=== PATIENT | male | born 2000 | race Caucasian/White ===

== ENCOUNTER 2019-12-07 09:44 | Emergency (ER) | payer MEDICAID ==
[2019-12-07] MEDS ORDERED: LORazepam 0.5 MG TABLET PO STA (10:02)
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
[2019-12-07 10:40] LABS: BASOPHILS % (AUTO) 0.5 %; EOSINOPHILS # (AUTO) 0.2 10^3/uL (0.0-0.7); EOSINOPHILS % (AUTO) 2.2 %; HGB - HEMOGLOBIN 16.5 g/dL (14.0-18.0); LYMPHOCYTES # (AUTO) 2.2 10^3/uL (1.5-3.5); MEAN CORPUSCULAR HEMOGLOBIN 30.4 pg (27.0-31.0); MEAN CORPUSCULAR HGB CONC 34.5 g/dL (32.0-36.0); MEAN CORPUSCULAR VOLUME 88.2 fL (80.0-94.0); MEAN PLATELET VOLUME 9.7 fL (7.4-11.4); MONOCYTES # (AUTO) 0.7 10^3/uL (0.0-1.0); MONOCYTES % (AUTO) 9.2 %; NEUTROPHILS # (AUTO) 4.2 10^3/uL (1.5-6.6); NEUTROPHILS % (AUTO) 57.8 %; PLT - PLATELET COUNT 321 10^3/uL (130-450); RED BLOOD COUNT 5.42 10^6/uL (4.70-6.10); RED CELL DISTRIBUTION WIDTH 13.8 % (12.0-15.0); WHITE BLOOD COUNT 7.3 x10^3/uL (4.8-10.8)
[2019-12-07 10:41] LABS: MUDS CUTOFF CONCENTRATIONS CUTOFF CONC BELOW:
[2019-12-07 10:45] LABS: BILIRUBIN,URINE NEGATIVE (NEGATIVE); GLUCOSE, URINE (UA) NEGATIVE (NEGATIVE); KETONES,URINE (UA) NEGATIVE (NEGATIVE); LEUKOCYTE ESTERASE, URINE NEGATIVE (NEGATIVE); NITRITE,URINE NEGATIVE (NEGATIVE); OCCULT BLOOD,URINE NEGATIVE (NEGATIVE); PH,URINE 8.5 PH (5.0-7.5); PROTEIN,URINE NEGATIVE (NEGATIVE); UROBILINOGEN,URINE 0.2 (NORMAL) E.U./dL (NORMAL)
[2019-12-07 10:46] LABS: CLARITY,URINE CLEAR (CLEAR)
[2019-12-07 10:54] LABS: AMPHETAMINE SCREEN,URINE NEGATIVE (NEGATIVE); BENZODIAZEPINES SCREEN, URINE NEGATIVE (NEGATIVE); COCAINE SCREEN URINE NEGATIVE (NEGATIVE); METHADONE SCREEN, URINE NEGATIVE (NEGATIVE); METHAMPHETAMINES SCREEN, URINE NEGATIVE (NEGATIVE); OPIATE SCREEN, URINE NEGATIVE (NEGATIVE); OXYCODONE SCREEN, URINE NEGATIVE (NEGATIVE); TRICYCLIC ANTIDEPRESSANT,URINE NEGATIVE (NEGATIVE)
[2019-12-07 10:55] LABS: PROPOXYPHENE SCREEN, URINE NEGATIVE (NEGATIVE)
[2019-12-07 10:58] LABS: ACETAMINOPHEN < 10 ug/mL (10-30); ALBUMIN/GLOBULIN RATIO 1.6 (1.0-2.2); ALKALINE PHOSPHATASE 48 IU/L (42-121); ALT ALANINE AMINOTRANSFERASE 23 IU/L (10-60); AST ASPARTATE AMINOTRANSFERASE 20 IU/L (10-42); BILIRUBIN,TOTAL 0.6 mg/dL (0.2-1.0); BUN - BLOOD UREA NITROGEN 13 mg/dL (6-20); CALCIUM 9.9 mg/dL (8.5-10.3); CARBON DIOXIDE - CO2 29 mmol/L (21-32); CHLORIDE 102 mmol/L (101-111); CREATININE 0.9 mg/dL (0.6-1.2); GLUCOSE 88 mg/dL (70-100); LIPASE 31 U/L (22-51); SALICYLATE < 6.0 mg/dL; SODIUM 140 mmol/L (135-145); TOTAL PROTEIN 8.1 g/dL (6.7-8.2)
[2019-12-07 12:37] VITALS: BP 130/75
== END 2019-12-07 12:52 | disposition home or self-care (01) ==
LOC: ED 09:44
DX: F41.9 Anxiety disorder, unspecified (principal); Z20.828 Contact with and (suspected) exposure to other viral communicable diseases
CPT/HCPCS: 36415; 80053; 80306; 80307; 80320; 80329; 81003; 83690; 84443; 85025; 87635; 99283; A9270; 81001; 87086

== ENCOUNTER 2020-01-20 15:31 | Emergency (ER) | payer MEDICAID ==
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
[2020-01-20 16:10] LABS: MUDS CUTOFF CONCENTRATIONS CUTOFF CONC BELOW:
[2020-01-20 16:11] LABS: BASOPHILS # (AUTO) 0.1 10^3/uL (0.0-0.1); BASOPHILS % (AUTO) 0.6 %; EOSINOPHILS # (AUTO) 0.1 10^3/uL (0.0-0.7); EOSINOPHILS % (AUTO) 1.1 %; HGB - HEMOGLOBIN 15.4 g/dL (14.0-18.0); LYMPHOCYTES # (AUTO) 2.3 10^3/uL (1.5-3.5); LYMPHOCYTES % (AUTO) 18.5 %; MEAN CORPUSCULAR HEMOGLOBIN 30.6 pg (27.0-31.0); MEAN CORPUSCULAR HGB CONC 34.5 g/dL (32.0-36.0); MEAN CORPUSCULAR VOLUME 88.7 fL (80.0-94.0); MONOCYTES % (AUTO) 8.2 %; NEUTROPHILS # (AUTO) 8.8 10^3/uL (1.5-6.6); NEUTROPHILS % (AUTO) 71.2 %; PLT - PLATELET COUNT 318 10^3/uL (130-450); RED BLOOD COUNT 5.03 10^6/uL (4.70-6.10); RED CELL DISTRIBUTION WIDTH 13.7 % (12.0-15.0); WHITE BLOOD COUNT 12.4 x10^3/uL (4.8-10.8)
[2020-01-20 16:18] LABS: BILIRUBIN,URINE NEGATIVE (NEGATIVE); GLUCOSE, URINE (UA) NEGATIVE (NEGATIVE); KETONES,URINE (UA) 40 mg/dL (NEGATIVE); LEUKOCYTE ESTERASE, URINE NEGATIVE (NEGATIVE); NITRITE,URINE NEGATIVE (NEGATIVE); OCCULT BLOOD,URINE NEGATIVE (NEGATIVE); PROTEIN,URINE NEGATIVE (NEGATIVE); UROBILINOGEN,URINE 0.2 (NORMAL) E.U./dL (NORMAL)
[2020-01-20 16:22] LABS: CLARITY,URINE CLEAR (CLEAR)
[2020-01-20 16:27] LABS: ACETAMINOPHEN < 10 ug/mL (10-30); ALBUMIN 4.9 g/dL (3.2-5.5); ALBUMIN/GLOBULIN RATIO 1.6 (1.0-2.2); ALKALINE PHOSPHATASE 41 IU/L (42-121); ALT ALANINE AMINOTRANSFERASE 38 IU/L (10-60); AST ASPARTATE AMINOTRANSFERASE 28 IU/L (10-42); BILIRUBIN,TOTAL 0.6 mg/dL (0.2-1.0); BUN - BLOOD UREA NITROGEN 18 mg/dL (6-20); CALCIUM 9.4 mg/dL (8.5-10.3); CARBON DIOXIDE - CO2 26 mmol/L (21-32); CHLORIDE 97 mmol/L (101-111); CREATININE 0.8 mg/dL (0.6-1.2); GLUCOSE 110 mg/dL (70-100); LIPASE 28 U/L (22-51); SALICYLATE < 6.0 mg/dL; SODIUM 136 mmol/L (135-145)
[2020-01-20 16:34] LABS: AMPHETAMINE SCREEN,URINE NEGATIVE (NEGATIVE); BENZODIAZEPINES SCREEN, URINE NEGATIVE (NEGATIVE); COCAINE SCREEN URINE NEGATIVE (NEGATIVE); METHADONE SCREEN, URINE NEGATIVE (NEGATIVE); METHAMPHETAMINES SCREEN, URINE NEGATIVE (NEGATIVE); OPIATE SCREEN, URINE NEGATIVE (NEGATIVE); OXYCODONE SCREEN, URINE NEGATIVE (NEGATIVE); PROPOXYPHENE SCREEN, URINE NEGATIVE (NEGATIVE); TRICYCLIC ANTIDEPRESSANT,URINE NEGATIVE (NEGATIVE)
[2020-01-20 17:02] LABS: C. PNEUMONIAE- RESP PCR PANEL NOT DETECTED
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
[2020-01-20 18:54] VITALS: BP 144/86
[2020-01-20] MEDS ORDERED: OLANZapine ODT 5 MG TABLET TL SCH ×2 (19:00)
[2020-01-20] MEDS ORDERED: LORazepam 1 MG TABLET PO STA (19:14)
== END 2020-01-21 00:11 ==
LOC: ED 15:31
DX: F20.1 Disorganized schizophrenia (principal); R45.851 Suicidal ideations; F32.9 Major depressive disorder, single episode, unspecified; F41.9 Anxiety disorder, unspecified; F12.90 Cannabis use, unspecified, uncomplicated; Z20.828 Contact with and (suspected) exposure to other viral communicable diseases; F17.200 Nicotine dependence, unspecified, uncomplicated
CPT/HCPCS: 0202U; 36415; 80053; 80306; 80307; 80320; 80329; 81003; 83690; 84443; 85025; 99283; 99285; A9270; J8499; 81001; 87086

== ENCOUNTER 2020-02-02 14:28 | Outpatient (CLI) | payer MEDICAID ==
--- NOTE | 2020-02-02 16:19 | XRAY Report ---
PROCEDURE: Lumbar Spine 2 View INDICATIONS: LOW BACK PAIN TECHNIQUE: 2 views of the lumbar spine were acquired. COMPARISON: None. FINDINGS: Bones: Bilateral L5 pars defects with approximately 1.3 cm anterolisthesis of L5 on S1. Associated m oderate facet osteoarthropathy. The degree of listhesis along with the associated spondylitic change results in moderate narrowing of the L4-L5 and L5-S1 neural foramina. Soft tissues: Overlying bowel gas pattern is normal. No suspicious soft tissue calcifications. IMPRESSION: Bilateral L5 pars defects with approximately 1.3 cm spondylolisthesis of L5 on S1, and a ssociated overall moderate degenerative changes, including at least moderate bilateral neural foramin al narrowing at L4-L5 and L5-S1. Consider MRI if there are radicular symptoms. Reviewed by: Twan Jolly MD on 02/02/2020 3:18 PM [place] Approved by: Twan Jolly MD on 02/02/2020 3:18 PM [facility] Station ID: [id number]
== END 2020-02-02 23:59 | disposition home or self-care (01) ==
LOC: DI.S 14:28
PROVIDERS: ATTEND Nurse Practitioner
DX: M43.17 Spondylolisthesis, lumbosacral region (principal)

== ENCOUNTER 2020-05-09 06:48 | Emergency (ER) | payer MEDICAID ==
[2020-05-09 07:04] VITALS: BP 126/76
--- NOTE | 2020-05-09 08:28 | ED Physician Documentation ---
History of Present Illness - Stated complaint Stated Complaint: MHE - Chief complaint Chief Complaint: MHE - History obtained from History obtained from: Patient - History of Present Illness Timing: Today - Additonal information Additional information: 20-year-old male history of undifferentiated schizophrenia has been living at his mother's home with his mother and his grandmother and he has been kicked out of their home he has been at [facility] for some time and he has been kicked out of [facility] as well. He offers no reason for this. He spent the night in a gas station and did not sleep and he states that this time around he has been homeless for 2 days. He states that basically since he has been 16 he has been homeless in some form or another. The patient denies suicidal or homicidal ideation and he is currently denying auditory or visual hallucinations. He does state that he has previously used amphetamine and methamphetamine he has never used heroin. He states that he has drank in the past but is not a regular drinker and he is not intoxicated this morning. He has come to the emergency department this morning seeking resources for homelessness. Review of Systems Constitutional: denies: Fever, Chills Eyes: denies: Decreased vision Ears: reports: Ear pain Nose: denies: Rhinorrhea / runny nose, Congestion Throat: denies: Sore throat Cardiac: denies: Chest pain / pressure, Palpitations Respiratory: reports: Cough. denies: Dyspnea GI: denies: Abdominal Pain, Nausea, Vomiting : denies: Dysuria, Frequency Skin: denies: Rash Musculoskeletal: denies: Neck pain, Back pain, Extremity pain Neurologic: denies: Generalized weakness, Focal weakness, Numbness Psychiatric: reports: Depressed, Anxiety, Insomnia PD PAST MEDICAL HISTORY - Past Medical History Past Medical History: Yes Psych: Depression, Anxiety - Past Surgical History Past Surgical History: No - Present Medications Home Medications: Ambulatory Orders Medication Instructions Recorded Confirmed No Known Home Medications 05/09/20 05/09/20 - Allergies Allergies/Adverse Reactions: Allergies Allergy/AdvReac Type Severity Reaction Status Date / Time No Known Drug Allergies Allergy Verified 05/09/20 07:04 - Social History Does the pt smoke?: Yes Smoking Status: Current every day smoker Does the pt drink ETOH?: No Does the pt have substance abuse?: No - Immunizations Immunizations are current?: No - POLST Patient has POLST: No PD ED PE NORMAL - Vitals Vital signs reviewed: Yes (normal ) - General General: Alert and oriented X 3, No acute distress, Well developed/nourished - HEENT HEENT: Atraumatic, PERRL, EOMI, Pharynx benign, Dentition benign, Other (There is erythema along the umbo with rounding of the umbo bilaterally and worse on the right) - Neck Neck: Supple, no meningeal sign, No bony TTP - Cardiac Cardiac: RRR, No murmur - Respiratory Respiratory: No respiratory distress, Clear bilaterally - Abdomen Abdomen: Soft, Non tender, Non distended, No organomegaly - Back Back: No CVA TTP, No spinal TTP - Derm Derm: Normal color, Warm and dry, No rash - Extremities Extremities: No deformity, No edema - Neuro Neuro: Alert and oriented X 3, medical administrative specialist 2-12 intact, No motor deficit, No sensory deficit, Normal speech Eye Opening: Spontaneous Motor: Obeys Commands Verbal: Oriented GCS Score: 15 - Psych Psych: Normal affect, Other (mood is withdrawn) Results - Vitals Vitals: Vital Signs - 24 hr 05/09/20 06:58 Temperature 36.9 C Heart Rate 79 Respiratory 18 Rate Blood Pressure 126/76 O2 Saturation 98 Oxygen O2 Source Room air PD MEDICAL DECISION MAKING - ED course Complexity details: reviewed old records, reviewed results, re-evaluated patient, considered differential, d/w patient ED course: 20-year-old homeless male has come to the emergency department this morning seeking resources. He is not suicidal or homicidal and denies auditory or visual hallucinations. He is asking for resources. The social sciences lecturer begins to give resources and the patient eloped from the emergency department. He headed to the [facility]. He was asking for money for a court date in 3 weeks and he was not forthcoming on why he was going to court. He could not explain why he was kicked out of his home. He was kicked out of Juan's house for breaking into someone's room to use their cell phone. Departure - Departure Disposition: ED [place] Clinical Impression: Homelessness
== END 2020-05-09 11:22 | disposition left against medical advice (07) ==
LOC: ED 06:48
DX: F20.3 Undifferentiated schizophrenia (principal); Z59.0 Homelessness; F17.200 Nicotine dependence, unspecified, uncomplicated
CPT/HCPCS: 99282; 99283

== ENCOUNTER 2020-05-14 22:36 | Outpatient (CLI) | payer MEDICAID | END 2020-05-14 22:37 | disposition critical access hospital (66) | LOC: EMS 22:36 | PROVIDERS: ATTEND Emergency Medicine | DX: Z60.5 Target of (perceived) adverse discrimination and persecution (principal) | CPT/HCPCS: A0425; A0429 ==

== ENCOUNTER 2020-05-14 22:50 | Emergency (ER) | payer MEDICAID ==
--- NOTE | 2020-05-14 22:55 | ED Physician Documentation ---
PD HPI MHE - Stated complaint Stated Complaint: MHE - History obtained from History obtained from: Patient, EMS - History of Present Illness Primary symptom: Other (paranoia) Timing - onset: Today Recently seen: Emergency Dept (T+R 5 days ago from this ED when he was requesting resources for homelessness) - Additional information Additional information: YOUNG. Patient says he called 911 because he was "not feeling particularly safe". Patient says he feels people around him are in gangs seeking to hurt him. He says he feels people in gangs are looking to retaliate but he will not elaborate what he means by this. He says he identifies the people as gang members because they are wearing red. He does not perceive this as delusion; he says there are actually people around him ([employer]) and that they are gang members. He says he is not currently taking prescription medication; when I ask if he is supposed to be taking medication, he gives vague/unclear answers. He is evasive with most of my HPI. Review of Systems Cardiac: reports: Reviewed and negative Respiratory: reports: Reviewed and negative GI: reports: Reviewed and negative Psychiatric: denies: Depressed, Suicidal, Insomnia PD PAST MEDICAL HISTORY - Past Medical History Past Medical History: Yes Psych: Depression, Anxiety - Past Surgical History Past Surgical History: No - Present Medications Home Medications: Ambulatory Orders Medication Instructions Recorded Confirmed No Known Home Medications 05/09/20 05/15/20 - Allergies Allergies/Adverse Reactions: Allergies Allergy/AdvReac Type Severity Reaction Status Date / Time No Known Drug Allergies Allergy Verified 05/14/20 23:04 - Social History Does the pt smoke?: Yes Smoking Status: Current every day smoker Does the pt drink ETOH?: No Does the pt have substance abuse?: No - Immunizations Immunizations are current?: No - POLST Patient has POLST: No PD ED PE NORMAL - Vitals Vital signs reviewed: Yes - General General: Alert and oriented X 3, No acute distress, Well developed/nourished - HEENT HEENT: PERRL, EOMI - Neck Neck: Supple, no meningeal sign - Cardiac Cardiac: RRR, No murmur - Respiratory Respiratory: No respiratory distress, Clear bilaterally - Abdomen Abdomen: Soft, Non tender Results - Vitals Vitals: Vital Signs - 24 hr 05/15/20 11:02 Temperature 36.3 C L Heart Rate 71 Respiratory 18 Rate Blood Pressure 121/72 O2 Saturation 96 Oxygen O2 Source Room air - Labs Labs: Laboratory Tests 05/14/20 05/15/20 05/15/20 23:06 02:37 02:37 WBC 10.5 RBC 5.34 Hgb 16.1 Hct 46.1 MCV 86.3 MCH 30.1 MCHC 34.9 RDW 14.0 Plt Count 321 MPV 9.3 Neut # (Auto) 5.5 Lymph # (Auto) 3.8 [place] # (Auto) 0.8 Eos # (Auto) 0.3 Baso # (Auto) 0.1 Absolute Nucleated RBC 0.00 Nucleated RBC % 0.0 Sodium 138 Potassium 3.9 Chloride 104 Carbon Dioxide 25 Anion Gap 9.0 BUN 20 Creatinine 0.8 Estimated GFR (MDRD) 121 Glucose 94 Calcium 9.2 Urine Color YELLOW Urine Clarity CLEAR Urine pH 6.5 Ur Specific [place] 1.020 Urine Protein NEGATIVE Urine Glucose (UA) NEGATIVE Urine Ketones NEGATIVE Urine Occult Blood NEGATIVE Urine Nitrite NEGATIVE Urine Bilirubin NEGATIVE Urine Urobilinogen 0.2 (NORMAL) Ur Leukocyte Esterase NEGATIVE Ur Microscopic Review NOT INDICATED Urine Culture Comments NOT INDICATED Salicylates < 6.0 Urine Opiates Screen NEGATIVE Ur Oxycodone Screen NEGATIVE Urine Methadone Screen NEGATIVE Ur Propoxyphene Screen NEGATIVE Acetaminophen < 10 L Ur Barbiturates Screen NEGATIVE Ur Tricyclics Screen NEGATIVE Ur Phencyclidine Scrn NEGATIVE Ur Amphetamine Screen NEGATIVE U Methamphetamines Scrn NEGATIVE U Benzodiazepines Scrn NEGATIVE Urine Cocaine Screen NEGATIVE U Cannabinoids Screen NEGATIVE Ethyl Alcohol < 5.0 PD MEDICAL DECISION MAKING - ED course Complexity details: reviewed old records, reviewed results, re-evaluated patient, considered differential, d/w patient ED course: patient is vague in his answers and thus unclear whether he is having delusions and/or is paranoid. He was evaluated in this ED 5 days ago when he presented requesting resources to deal with homelessness, having just been kicked out of [facility]. He also has ED visit January 2020 and was transferred to [facility] inpatient for psychosis. Care of patient turned over to Dr. Stauffer at end of my shift, pending telepsych evaluation Departure - Departure Disposition: 01 Home, Self Care Clinical Impression: Paranoia, Homelessness Depression Qualifiers: Depression Type: unspecified Qualified Code(s): F32.9 - Major depressive disorder, single episode, unspecified Condition: Good Instructions: ED Depression Comments: You were seen in the emergency department for your mental health. A psychiatrist evaluated you and determined that you would benefit from following up at [facility] for outpatient psychiatric treatment. Our social group worker [place] and for mental health outreach. Please return to the emergency department if you develop worsening symptoms, have concerns for your safety, or feel that you may harm yourself or others. Our social workers will call for follow-up with you tomorrow. Discharge Date/Time: 05/15/20 11:22
[2020-05-14 23:21] LABS: MUDS CUTOFF CONCENTRATIONS CUTOFF CONC BELOW:
[2020-05-14 23:22] LABS: BILIRUBIN,URINE NEGATIVE (NEGATIVE); GLUCOSE, URINE (UA) NEGATIVE (NEGATIVE); KETONES,URINE (UA) NEGATIVE (NEGATIVE); LEUKOCYTE ESTERASE, URINE NEGATIVE (NEGATIVE); NITRITE,URINE NEGATIVE (NEGATIVE); OCCULT BLOOD,URINE NEGATIVE (NEGATIVE); PH,URINE 6.5 PH (5.0-7.5); PROTEIN,URINE NEGATIVE (NEGATIVE); UROBILINOGEN,URINE 0.2 (NORMAL) E.U./dL (NORMAL)
[2020-05-14 23:24] LABS: CLARITY,URINE CLEAR (CLEAR)
[2020-05-14 23:33] LABS: AMPHETAMINE SCREEN,URINE NEGATIVE (NEGATIVE); BARBITURATE SCREEN,UR NEGATIVE (NEGATIVE); BENZODIAZEPINES SCREEN, URINE NEGATIVE (NEGATIVE); COCAINE SCREEN URINE NEGATIVE (NEGATIVE); METHADONE SCREEN, URINE NEGATIVE (NEGATIVE); METHAMPHETAMINES SCREEN, URINE NEGATIVE (NEGATIVE); OPIATE SCREEN, URINE NEGATIVE (NEGATIVE); OXYCODONE SCREEN, URINE NEGATIVE (NEGATIVE); PROPOXYPHENE SCREEN, URINE NEGATIVE (NEGATIVE); THC CANNABINOID SCREEN, URINE NEGATIVE (NEGATIVE); TRICYCLIC ANTIDEPRESSANT,URINE NEGATIVE (NEGATIVE)
[2020-05-15 02:45] LABS: BASOPHILS # (AUTO) 0.1 10^3/uL (0.0-0.1); BASOPHILS % (AUTO) 0.5 %; EOSINOPHILS # (AUTO) 0.3 10^3/uL (0.0-0.7); EOSINOPHILS % (AUTO) 2.4 %; HCT - HEMATOCRIT 46.1 % (42.0-52.0); HGB - HEMOGLOBIN 16.1 g/dL (14.0-18.0); LYMPHOCYTES # (AUTO) 3.8 10^3/uL (1.5-3.5); LYMPHOCYTES % (AUTO) 36.1 %; MEAN CORPUSCULAR HEMOGLOBIN 30.1 pg (27.0-31.0); MEAN CORPUSCULAR HGB CONC 34.9 g/dL (32.0-36.0); MEAN CORPUSCULAR VOLUME 86.3 fL (80.0-94.0); MEAN PLATELET VOLUME 9.3 fL (7.4-11.4); MONOCYTES # (AUTO) 0.8 10^3/uL (0.0-1.0); MONOCYTES % (AUTO) 7.8 %; NEUTROPHILS # (AUTO) 5.5 10^3/uL (1.5-6.6); NEUTROPHILS % (AUTO) 52.9 %; PLT - PLATELET COUNT 321 10^3/uL (130-450); RED BLOOD COUNT 5.34 10^6/uL (4.70-6.10); WHITE BLOOD COUNT 10.5 x10^3/uL (4.8-10.8)
[2020-05-15 02:59] LABS: ACETAMINOPHEN < 10 ug/mL (10-30); BUN - BLOOD UREA NITROGEN 20 mg/dL (6-20); CALCIUM 9.2 mg/dL (8.5-10.3); CARBON DIOXIDE - CO2 25 mmol/L (21-32); CHLORIDE 104 mmol/L (101-111); CREATININE 0.8 mg/dL (0.6-1.2); ETOH - ETHANOL < 5.0 mg/dL; GFR - MDRD 121 (>89); GLUCOSE 94 mg/dL (70-100); POTASSIUM 3.9 mmol/L (3.5-5.0); SALICYLATE < 6.0 mg/dL; SODIUM 138 mmol/L (135-145)
--- NOTE | 2020-05-15 07:55 | TELEPSYCH PHYS NOTE ---
Telepsych Note - CHIEF COMPLAINT/HX OF PRESENT ILLNESS Chief Complaint and History of Present Illness: [employer] Patient Name: Angie Romeo :2000 Date of consult: 05/15/2020 Time consult started:11am EST Length of consult:1 hour Location of patient: [facility] Location of physician: [facility] This evaluation was conducted via telepsychiatry with the assistance of onsite staff:SIVA Collier Reason for consult: paranoia? History of Present Illness: This is a 20yo M with no noted psychiatric history in the ED since 05/14 for paranoia about gang activity around him. Patient called for emergency services because he was not feeling particularly safe. RN reports that patient has denied SI and has not been agitated in the ED. Patient may recently be homeless and did not provide any emergency contacts. He was reportedly vague about his paranoid fears, saying only that he thought people in gangs were around him because they were wearing red. On evaluation, patient describes feeling tired and confirms that he did not feel safe out in the community. He is recently homeless because his mother kicked him out of her home a month ago. He [facility] in a [facility]3 weeks but now again has no place to go. He tried to stay with his girlfriend but she ended things and he says all his friends have abandoned him. 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 He convincingly denies any SI, HI and hallucinations. He has some insight about his paranoia, calling it paranoia but also sometimes thinking that his fears had some reality basis. Hes apparently burned some bridges in his past relationships and says he fears some people from his past might want to retaliate against him. He feels safe from harm in hospital but says it only makes sense for him to be on guard out in the community. He admits to being diagnosed with PTSD and says this is probably an accurate diagnosis for him. He was discharged from psych 2 months ago on Risperdal, clonidine and trazodone but says the Risperdal made him feel off. He allows that the clonidine might have been helpful for his anxiety. He declines inpatient psychiatry but agrees that he will seek this level of care if he feels unsafe again. Sources of information: EMR, hospital staff, patient SI/attempts/Self harm: denies SI and past self-harm HI/Violence: denies HI and past violence Legal: not detained, spent an overnight in [facility] a month ago for taking his mothers vehicle without permission Sleep: poor Psychiatric History/Treatment History: inpatient psych a year ago and 2 months ago; discharged on Risperdal, clonidine and trazodone 2 months ago but did not continue meds outpatient Drug/Alcohol History: toxicology: negative; alcohol <5 Medical History: non-contributory Psych Medications & Freq: none Allergies: NKDA Family Psych History/History of suicide: mother has had a suicide attempt and inpatient psych treatment Social History: Living situation: homeless Relationship status: not partnered Occupation: had worked at a [employer] but recently lost that job Stressors/precipitants: recently homeless and jobless Protective factors/supports: has sought help when needed Mental Status Exam: Appearance and attire: young white man in hospital gown Attitude and behavior: somewhat withdrawn but cooperates with questions Speech: normal rate, tone and volume Affect and mood: stable, tired Association and thought processes: goal directed Thought content: denies SI and HI Perception: no hallucinations, admits to recent paranoia but this may be informed by past trauma and current unfamiliar environs Sensorium, attention and cognition: alert and able to attend, grossly oriented to situation Insight and judgment: fair Impression/Risk Assessment: This is a 20yo M with PTSD in the ED 05/14 for vague paranoia about people wearing red and being gang members. Patient confirmed that he did not feel safe out in the community but denies any SI, HI and hallucinations. He is recently homeless and has been diagnosed with PTSD. Some of his paranoia could be trauma-informed. He did not find Risperdal helpful but clonidine appeared to help his anxiety. He declined inpatient psychiatry and agreed to discuss local resources with hospital staff. Primary Psychiatric Diagnosis: PTSD Diagnosis code: F43.1 Treatment Recommendations Level of Care/Psychiatric Clearance: declines inpatient psychiatry and does not meet criteria for involuntary inpatient psychiatric treatment; consult with SW (if possible) for local homelessness resources Observation level: does not warrant 1:1 monitoring Pharmacological: clonidine 0.1mg bid Electronically signed by Ana Salinas MD - PSYCHIATRIC HX/TREATMENT HX Psychiatric: Depression, Anxiety, Post traumatic stress disorder - MEDICAL HX Does the pt have a hx of MRSA?: No Neurological History: None Eyes, Ears, Nose, Throat: None Cardiovascular: None Respiratory: None Skin: None Endocrine/Autoimmune: None Gastrointestinal: None Urinary: None Musculoskeletal: None Blood Disorders: None - HOME MEDICATIONS Home Meds (as last confirmed): Patient History Medication Instructions Recorded Confirmed No Known Home Medications 05/09/20 05/14/20 - ALLERGIES Allergies (as last confirmed): Allergies Allergy/AdvReac Type Severity Reaction Status Date / Time No Known Drug Allergies Allergy Verified 05/14/20 23:04 - TIME SPENT & PROVIDER LOCATION Telepsych consultation conducted via videoconferencing: Yes List names and roles of persons who participated in consult: patient SIVA Adams, Dr Salinas Telepsych Provider Location: [place] Time Telepsych consult began: 11:00 (EST) Time Telepsych consult completed: 08:41
--- NOTE | 2020-05-15 10:40 | ED Physician Documentation ---
ED Addendum - Addendum Addendum: 05/15/20 10:39 Patient endorsed to me by Dr. Osullivan awaiting telepsych and social work evaluation. I discussed with social work and the patient does not meet criteria for inpatient psych hospitalization and he prefers to try outpatient at this time. I discussed with the patient and he denies SI HI AVH. He states he will follow up with [facility]. Our DCR Shashank will call him tomorrow for follow- up. Resources provided for the [facility] and [place]
[2020-05-15 11:03] VITALS: BP 121/72
== END 2020-05-15 11:22 | disposition home or self-care (01) ==
LOC: EDBD → ED 22:50
DX: F22 Delusional disorders (principal); F17.200 Nicotine dependence, unspecified, uncomplicated; Z59.0 Homelessness
CPT/HCPCS: 36415; 80048; 80306; 80307; 80320; 80329; 81001; 81003; 85025; 87086; 99283

== ENCOUNTER 2020-05-15 15:34 | Emergency (ER) | payer MEDICAID ==
[2020-05-15 15:39] VITALS: BP 149/79
--- NOTE | 2020-05-15 16:01 | ED Physician Documentation ---
History of Present Illness - Stated complaint Stated Complaint: CHILLS,FORTUNE,MUSCLE ACHES - Chief complaint Chief Complaint: General - History obtained from History obtained from: Patient - Additonal information Additional information: 20-year-old gentleman presents concerned that he may have coronavirus. He has been here several times lately for mental health issues, and time, as his policy, we ask him screening questions for things like fever and body aches. On previous visits he had denied he had these, but then when he was thinking about the questions he realized he has had the symptoms. Not fevers but chills, body aches, fatigue, runny nose, when asked how long he has had the symptoms he states 6 months but then clarifies that he was sick for a few weeks last summer and now has been sick for the last week or so. He has ancillary complaint of not knowing where he is going to stay tonight as he is homeless and seems to be kicked out of most of the shelters. Review of Systems Constitutional: reports: Chills, Fatigue. denies: Fever Cardiac: denies: Palpitations Respiratory: denies: Dyspnea, Cough PD PAST MEDICAL HISTORY - Past Medical History Cardiovascular: None Respiratory: None Neuro: None Endocrine/Autoimmune: None GI: None : None HEENT: None Psych: Depression, Anxiety, Post traumatic stress disorder Musculoskeletal: None Derm: None - Past Surgical History Past Surgical History: No - Present Medications Home Medications: Ambulatory Orders Medication Instructions Recorded Confirmed No Known Home Medications 05/09/20 05/15/20 - Allergies Allergies/Adverse Reactions: Allergies Allergy/AdvReac Type Severity Reaction Status Date / Time No Known Drug Allergies Allergy Verified 05/14/20 23:04 - Social History Does the pt smoke?: Yes Smoking Status: Current every day smoker Does the pt drink ETOH?: No Does the pt have substance abuse?: No - Immunizations Immunizations are current?: No - POLST Patient has POLST: No PD ED PE NORMAL - Vitals Vital signs reviewed: Yes - General General: Alert and oriented X 3, No acute distress - HEENT HEENT: PERRL, EOMI - Neck Neck: Supple, no meningeal sign, No bony TTP - Cardiac Cardiac: RRR, No murmur - Respiratory Respiratory: No respiratory distress, Clear bilaterally - Abdomen Abdomen: Non tender - Derm Derm: Normal color, Warm and dry - Extremities Extremities: No edema, No calf tenderness / cord - Neuro Neuro: Alert and oriented X 3, Normal speech Results - Vitals Vitals: Vital Signs - 24 hr 05/15/20 15:37 Temperature 36.5 C Heart Rate 108 H Respiratory 18 Rate Blood Pressure 149/79 H O2 Saturation 95 Oxygen O2 Source Room air Departure - Departure Disposition: Home, Self Care Clinical Impression: Myalgia Condition: Good Record reviewed to determine appropriate education?: Yes Instructions: ED Viral Syndrome Comments: You have a Covid test pending. You need to self quarantine until the result is done and negative. Do not leave your house. Do not get near anybody. The results should be done in 48 to 72 hours. We will call with a positive result, the fastest way to get a negative result for confirmation though is to go to the hospital website at [email or web address], click on the my [employer] tab and sign up for the patient portal. If any friends or family get sick and would like to have a Covid test done, but do not have signs or symptoms that would necessitate being hospitalized, we encourage testing through our coronavirus swabbing station, call [phone] to schedule an appointment.
== END 2020-05-15 16:50 | disposition home or self-care (01) ==
LOC: ED 15:34
DX: M79.10 Myalgia, unspecified site (principal); R68.83 Chills (without fever); R53.83 Other fatigue; F17.200 Nicotine dependence, unspecified, uncomplicated; Z20.822 Contact with and (suspected) exposure to COVID-19; F22 Delusional disorders; Z59.0 Homelessness
CPT/HCPCS: 36415; 80048; 80306; 80307; 80320; 80329; 81003; 85025; 87635; 99282; 99283; G0427; Q3014; 81001; 87086

== ENCOUNTER 2020-08-01 08:00 | Outpatient (CLI) | payer MEDICAID ==
[2020-08-01 20:49] LABS: BILIRUBIN,URINE NEGATIVE (NEGATIVE); GLUCOSE, URINE (UA) NEGATIVE (NEGATIVE); KETONES,URINE (UA) NEGATIVE (NEGATIVE); LEUKOCYTE ESTERASE, URINE NEGATIVE (NEGATIVE); NITRITE,URINE NEGATIVE (NEGATIVE); OCCULT BLOOD,URINE NEGATIVE (NEGATIVE); PH,URINE 5.5 PH (5.0-7.5); PROTEIN,URINE NEGATIVE (NEGATIVE); UROBILINOGEN,URINE 0.2 (NORMAL) E.U./dL (NORMAL)
[2020-08-01 20:58] LABS: CLARITY,URINE CLEAR (CLEAR)
[2020-08-01 21:03] LABS: RBC,URINE None Seen /HPF (0-5); SQUAMOUS EPITHELIAL CELL,UR NONE SEEN (<= Few); WBC,URINE 0-3 /HPF (0-3)
[2020-08-01 21:04] LABS: BACTERIA,URINE None Seen /HPF (None Seen)
[2020-08-02 04:21] LABS: CHLAMYDIA TRACHOMATIS DNA NEGATIVE (NEGATIVE); NEISSERIA GONORRHOEAE DNA NEGATIVE (NEGATIVE)
== END 2020-08-01 23:59 | disposition home or self-care (01) ==
LOC: LAB.S 08:00
PROVIDERS: ATTEND Emergency Medicine
DX: N34.2 Other urethritis (principal)
CPT/HCPCS: 81001; 87086; 87491; 87591; 87661

== ENCOUNTER 2022-01-02 21:08 | Emergency (ER) | payer MEDICAID ==
[2022-01-02 21:25] VITALS: BP 132/85
== END 2022-01-02 21:58 | disposition left against medical advice (07) ==
LOC: ED 21:08
DX: Z53.21 Procedure and treatment not carried out due to patient leaving prior to being seen by health care provider (principal)

== ENCOUNTER 2022-02-08 07:37 | Emergency (ER) | payer MEDICAID ==
[2022-02-08 08:03] VITALS: BP 130/79
== END 2022-02-08 09:45 | disposition left against medical advice (07) ==
LOC: ED 07:37
DX: Z53.21 Procedure and treatment not carried out due to patient leaving prior to being seen by health care provider (principal)

== ENCOUNTER 2022-03-06 16:51 | Emergency (ER) | payer MEDICAID ==
[2022-03-06 17:18] LABS: BASOPHILS # (AUTO) 0.1 10^3/uL (0.0-0.1); BASOPHILS % (AUTO) 0.5 %; EOSINOPHILS # (AUTO) 0.3 10^3/uL (0.0-0.7); EOSINOPHILS % (AUTO) 2.4 %; HCT - HEMATOCRIT 43.2 % (42.0-52.0); HGB - HEMOGLOBIN 14.4 g/dL (14.0-18.0); LYMPHOCYTES # (AUTO) 3.5 10^3/uL (1.5-3.5); LYMPHOCYTES % (AUTO) 26.9 %; MEAN CORPUSCULAR HEMOGLOBIN 28.7 pg (27.0-31.0); MEAN CORPUSCULAR HGB CONC 33.3 g/dL (32.0-36.0); MEAN CORPUSCULAR VOLUME 86.1 fL (80.0-94.0); MEAN PLATELET VOLUME 9.8 fL (7.4-11.4); MONOCYTES # (AUTO) 0.9 10^3/uL (0.0-1.0); MONOCYTES % (AUTO) 6.7 %; NEUTROPHILS # (AUTO) 8.3 10^3/uL (1.5-6.6); NEUTROPHILS % (AUTO) 63.2 %; PLT - PLATELET COUNT 388 10^3/uL (130-450); RED BLOOD COUNT 5.02 10^6/uL (4.70-6.10); WHITE BLOOD COUNT 13.1 x10^3/uL (4.8-10.8)
[2022-03-06 17:28] LABS: MUDS CUTOFF CONCENTRATIONS CUTOFF CONC BELOW:
[2022-03-06 17:33] LABS: BILIRUBIN,URINE NEGATIVE (NEGATIVE); GLUCOSE, URINE (UA) NEGATIVE (NEGATIVE); KETONES,URINE (UA) NEGATIVE (NEGATIVE); LEUKOCYTE ESTERASE, URINE NEGATIVE (NEGATIVE); NITRITE,URINE NEGATIVE (NEGATIVE); OCCULT BLOOD,URINE NEGATIVE (NEGATIVE); PROTEIN,URINE NEGATIVE (NEGATIVE); UROBILINOGEN,URINE 0.2 (NORMAL) E.U./dL (NORMAL)
[2022-03-06 17:37] LABS: CLARITY,URINE CLEAR (CLEAR)
[2022-03-06 17:43] LABS: AMPHETAMINE SCREEN,URINE POSITIVE (NEGATIVE); BARBITURATE SCREEN,UR NEGATIVE (NEGATIVE); BENZODIAZEPINES SCREEN, URINE NEGATIVE (NEGATIVE); COCAINE SCREEN URINE NEGATIVE (NEGATIVE); METHADONE SCREEN, URINE NEGATIVE (NEGATIVE); METHAMPHETAMINES SCREEN, URINE POSITIVE (NEGATIVE); OPIATE SCREEN, URINE NEGATIVE (NEGATIVE); OXYCODONE SCREEN, URINE NEGATIVE (NEGATIVE); PROPOXYPHENE SCREEN, URINE NEGATIVE (NEGATIVE); THC CANNABINOID SCREEN, URINE NEGATIVE (NEGATIVE); TRICYCLIC ANTIDEPRESSANT,URINE NEGATIVE (NEGATIVE)
[2022-03-06 17:50] LABS: ACETAMINOPHEN < 10 ug/mL (10-30); ALBUMIN 4.5 g/dL (3.2-5.5); ALBUMIN/GLOBULIN RATIO 1.3 (1.0-2.2); ALKALINE PHOSPHATASE 52 IU/L (42-121); ALT ALANINE AMINOTRANSFERASE 22 IU/L (10-60); AST ASPARTATE AMINOTRANSFERASE 18 IU/L (10-42); BILIRUBIN,TOTAL 0.5 mg/dL (0.2-1.0); BUN - BLOOD UREA NITROGEN 17 mg/dL (6-20); CARBON DIOXIDE - CO2 28 mmol/L (21-32); CHLORIDE 98 mmol/L (101-111); CREATININE 0.8 mg/dL (0.6-1.2); ETOH - ETHANOL < 5.0 mg/dL; GFR - MDRD 119 (>89); GLUCOSE 101 mg/dL (70-100); LIPASE 46 U/L (22-51); SALICYLATE < 6.0 mg/dL; SODIUM 135 mmol/L (135-145); TOTAL PROTEIN 7.9 g/dL (6.7-8.2)
[2022-03-06 18:42] LABS: B. PARAPERTUSSIS- RESP PCR PAN NOT DETECTED; B. PERTUSSIS- RESP PCR PANEL NOT DETECTED; C. PNEUMONIAE- RESP PCR PANEL NOT DETECTED; CORONAVIRUS 229E-RESP PCR NOT DETECTED; CORONAVIRUS HKU1-RESP PCR NOT DETECTED; CORONAVIRUS NL63-RESP PCR NOT DETECTED; CORONAVIRUS OC43-RESP PCR NOT DETECTED; HUMAN METAPNEUMOVIRUS NOT DETECTED; INFLUENZA A- RESP PCR PANEL NOT DETECTED; INFLUENZA B - RESP PCR PANEL NOT DETECTED; M. PNEUMONIAE- RESP PCR PANEL NOT DETECTED; PARAINFLUENZA VIRUS 1 NOT DETECTED; PARAINFLUENZA VIRUS 2 NOT DETECTED; PARAINFLUENZA VIRUS 3 NOT DETECTED; PARAINFLUENZA VIRUS 4 NOT DETECTED; RHINOVIRUS/ENTEROVIRUS NOT DETECTED; RSV- RESP PCR PANEL NOT DETECTED; SARS-CoV-2 -RESP PCR PANEL NOT DETECTED
--- NOTE | 2022-03-06 19:22 | ED Physician Documentation ---
PD HPI MHE - Stated complaint Stated Complaint: MHE - Chief complaint Chief Complaint: MHE - History obtained from History obtained from: Patient - Additional information Additional information: Patient is a 22-year-old with a history of meth abuse presenting for evaluation of auditory hallucinations. Patient states that this has been ongoing for 1 year. He states that they are command hallucinations and tell him to do drugs and at times encourage him to be violent or do bad things. He denies being suicidal. He says he does not want to hurt anybody which is what prompted him to come to the ER today for evaluation. He last reports using meth a few days ago. He denies alcohol use. Review of Systems Constitutional: denies: Fever Cardiac: denies: Chest pain / pressure Respiratory: denies: Dyspnea GI: denies: Abdominal Pain : denies: Dysuria Neurologic: denies: Headache PD PAST MEDICAL HISTORY - Past Medical History Cardiovascular: None Respiratory: None Neuro: None Endocrine/Autoimmune: None GI: None : None HEENT: None Psych: Depression, Anxiety, Post traumatic stress disorder Musculoskeletal: None Derm: None - Past Surgical History Past Surgical History: No - Present Medications Home Medications: Ambulatory Orders Medication Instructions Recorded Confirmed OLANZapine [Zyprexa] 10 mg PO BID 01/02/22 01/02/22 - Allergies Allergies/Adverse Reactions: Allergies Allergy/AdvReac Type Severity Reaction Status Date / Time No Known Drug Allergies Allergy Verified 02/08/22 07:55 - Social History Does the pt smoke?: Yes Smoking Status: Current every day smoker Does the pt drink ETOH?: No Does the pt have substance abuse?: No - Immunizations Immunizations are current?: No - POLST Patient has POLST: No PD ED PE NORMAL - General General: Alert and oriented X 3, No acute distress, Well developed/nourished - HEENT HEENT: Atraumatic - Neck Neck: Supple, no meningeal sign - Cardiac Cardiac: RRR, No murmur - Respiratory Respiratory: No respiratory distress, Clear bilaterally - Abdomen Abdomen: Soft, Non tender - Derm Derm: Warm and dry - Neuro Neuro: Alert and oriented X 3, No motor deficit, Normal speech Results - Vitals Vitals: Vital Signs - 24 hr 03/06/22 17:02 Temperature 37.2 C Heart Rate 97 Respiratory 18 Rate Blood Pressure 125/77 O2 Saturation 99 Oxygen O2 Source Room air - Labs Labs: Laboratory Tests 03/06/22 03/06/22 03/06/22 17:15 17:15 17:15 WBC 13.1 H RBC 5.02 Hgb 14.4 Hct 43.2 MCV 86.1 MCH 28.7 MCHC 33.3 RDW 14.0 Plt Count 388 MPV 9.8 Neut # (Auto) 8.3 H Lymph # (Auto) 3.5 [place] # (Auto) 0.9 Eos # (Auto) 0.3 Baso # (Auto) 0.1 Absolute Nucleated RBC 0.00 Nucleated RBC % 0.0 Sodium 135 Potassium 4.0 Chloride 98 L Carbon Dioxide 28 Anion Gap 9.0 BUN 17 Creatinine 0.8 Estimated GFR (MDRD) 119 Glucose 101 H Calcium 9.0 Total Bilirubin 0.5 AST 18 ALT 22 Alkaline Phosphatase 52 Total Protein 7.9 Albumin 4.5 Globulin 3.4 Albumin/Globulin Ratio 1.3 Lipase 46 TSH 8.60 H Free T4 Urine Color Urine Clarity Urine pH Ur Specific [place] Urine Protein Urine Glucose (UA) Urine Ketones Urine Occult Blood Urine Nitrite Urine Bilirubin Urine Urobilinogen Ur Leukocyte Esterase Ur Microscopic Review Urine Culture Comments Nasal Adenovirus (PCR) Nasal B. parapertussis DNA (PCR) Nasal Coronavir 229E PCR Nasal Coronavir HKU1 PCR Nasal Coronavir NL63 PCR Nasal Coronavir OC43 PCR Nasal Enterovir/Rhinovir PCR Nasal Influenza B PCR Nasal Influenza A PCR Nasal Parainfluen 1 PCR Nasal Parainfluen 2 PCR Nasal Parainfluen 3 PCR Nasal Parainfluen 4 PCR Nasal RSV (PCR) Nasal B.pertussis DNA PCR Nasal C.pneumoniae (PCR) [place] Human Metapneumo PCR Nasal M.pneumoniae (PCR) Nasal SARS-CoV-2 (PCR) Salicylates < 6.0 Urine Opiates Screen Ur Oxycodone Screen Urine Methadone Screen Ur Propoxyphene Screen Acetaminophen < 10 L Ur Barbiturates Screen Ur Tricyclics Screen Ur Phencyclidine Scrn Ur Amphetamine Screen U Methamphetamines Scrn U Benzodiazepines Scrn Urine Cocaine Screen U Cannabinoids Screen Ethyl Alcohol < 5.0 03/06/22 03/06/22 03/06/22 17:15 17:19 17:19 WBC RBC Hgb Hct MCV MCH MCHC RDW Plt Count MPV Neut # (Auto) Lymph # (Auto) [place] # (Auto) Eos # (Auto) Baso # (Auto) Absolute Nucleated RBC Nucleated RBC % Sodium Potassium Chloride Carbon Dioxide Anion Gap BUN Creatinine Estimated GFR (MDRD) Glucose Calcium Total Bilirubin AST ALT Alkaline Phosphatase Total Protein Albumin Globulin Albumin/Globulin Ratio Lipase TSH Free T4 0.78 Urine Color YELLOW Urine Clarity CLEAR Urine pH 7.0 Ur Specific [place] 1.015 Urine Protein NEGATIVE Urine Glucose (UA) NEGATIVE Urine Ketones NEGATIVE Urine Occult Blood NEGATIVE Urine Nitrite NEGATIVE Urine Bilirubin NEGATIVE Urine Urobilinogen 0.2 (NORMAL) Ur Leukocyte Esterase NEGATIVE Ur Microscopic Review NOT INDICATED Urine Culture Comments NOT INDICATED Nasal Adenovirus (PCR) NOT DETECTED Nasal B. parapertussis DNA (PCR) NOT DETECTED Nasal Coronavir 229E PCR NOT DETECTED Nasal Coronavir HKU1 PCR NOT DETECTED Nasal Coronavir NL63 PCR NOT DETECTED Nasal Coronavir OC43 PCR NOT DETECTED Nasal Enterovir/Rhinovir PCR NOT DETECTED Nasal Influenza B PCR NOT DETECTED Nasal Influenza A PCR NOT DETECTED Nasal Parainfluen 1 PCR NOT DETECTED Nasal Parainfluen 2 PCR NOT DETECTED Nasal Parainfluen 3 PCR NOT DETECTED Nasal Parainfluen 4 PCR NOT DETECTED Nasal RSV (PCR) NOT DETECTED Nasal B.pertussis DNA PCR NOT DETECTED Nasal C.pneumoniae (PCR) NOT DETECTED [place] Human Metapneumo PCR NOT DETECTED Nasal M.pneumoniae (PCR) NOT DETECTED Nasal SARS-CoV-2 (PCR) NOT DETECTED Salicylates Urine Opiates Screen NEGATIVE Ur Oxycodone Screen NEGATIVE Urine Methadone Screen NEGATIVE Ur Propoxyphene Screen NEGATIVE Acetaminophen Ur Barbiturates Screen NEGATIVE Ur Tricyclics Screen NEGATIVE Ur Phencyclidine Scrn NEGATIVE Ur Amphetamine Screen POSITIVE H U Methamphetamines Scrn POSITIVE H U Benzodiazepines Scrn NEGATIVE Urine Cocaine Screen NEGATIVE U Cannabinoids Screen NEGATIVE Ethyl Alcohol PD Medical Decision Making - ED course ED course: Patient is a 22-year-old presenting for evaluation of auditory hallucinations. Denies suicidal thoughts. States that the voices at times make him want to hurt people.He has been medically cleared and is awaiting telepsychiatry evaluation.Patient signed out to oncoming provider at shift change. Departure - Departure Clinical Impression: Hallucinations Condition: Stable
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
--- NOTE | 2022-03-07 11:32 | ED Physician Documentation ---
ED Addendum - Addendum Addendum: Patient is feeling better this morning after resting in the emergency department overnight. He does not feel violent and has not had any outburst here.He was seen by social work and does have outpatient resources. He does have medication waiting for him at the pharmacy. He has never been suicidal.Does not appear to meet criteria for DCR and has an appropriate safety plan in place. Departure - Departure Disposition: 01 Home, Self Care Clinical Impression: Hallucinations, Methamphetamine abuse Condition: Stable Instructions: ED Drug Abuse General Comments: Please follow-up with the resources given to you by social work. Would also recommend that you belt picker your medications today. If at anytime you have any worsening symptoms please return to the emergency department.
[2022-03-07 11:37] VITALS: BP 130/68
== END 2022-03-07 11:37 | disposition home or self-care (01) ==
LOC: EDUNIT# → ED 16:51
DX: R44.0 Auditory hallucinations (principal); F15.10 Other stimulant abuse, uncomplicated; F17.200 Nicotine dependence, unspecified, uncomplicated; Z20.822 Contact with and (suspected) exposure to COVID-19
CPT/HCPCS: 36415; 80053; 80306; 80307; 80320; 80329; 81001; 81003; 83690; 84439; 84443; 85025; 87086; 87633; 90834; 99283